=== PATIENT | female | born 1980 | race American Indian/Alaskan Native ===

== ENCOUNTER 2016-12-19 02:27 | Emergency (ER) | payer MEDICAID ==
[2016-12-19 03:03] VITALS: RESP 18
[2016-12-19 03:09] VITALS: BMI 30.6
[2016-12-19] MEDS ORDERED: Morphine 2 mg/ml ISec IM STA (03:27)
--- NOTE | 2016-12-19 03:31 | ED PDOC ---
Arrival/HPI - General Historian: Patient - History of Present Illness Time/Duration: < month Symptom Onset: Gradual Symptom Course: Unchanged Quality: Aching <Graeme Junior - Last Filed: 12/19/16 04:50> <Jose Lehman - Last Filed: 12/19/16 05:42> - General Chief Complaint: Lower Extremity Problem/Injury Time Seen by Provider: 12/19/16 03:14 - History of Present Illness Narrative History of Present Illness (Text): 12/19/16 03:31 36 y/o female with no PMH presents with right dorsal foot pain. Patient states pain started about 3 weeks ago. Patient thinks she may have dropped something on the foot at that time but cannot remember. Pain has been constant since that time however it has worsened over the past 2 days to the point were the patient cannot sleep due to the pain. She was seen by her PCP and prescribed Tramadol which has not provided relief. Patient is able to ambulate however with pain. She denies calf pain or swelling, recent travel, history of blood clots, or smoking history. Patient has a copper IUD. (Graeme Junior) Past Medical History - Provider Review Nursing Documentation Reviewed: Yes - Infectious Disease Hx of Infectious Diseases: None - Tetanus Immunization Tetanus Immunization: Unknown - Past Medical History Past Medical History: No Previous - Pulmonary Hx Asthma: Yes - Musculoskeletal/Rheumatological Hx Musculoskeletal Disorders: No - Gastrointestinal Hx Gastrointestinal Disorders: No - Genitourinary/Gynecological Hx Genitourinary Disorders: No - Psychiatric Hx Psychophysiologic Disorder: No Hx Depression: No Hx Emotional Abuse: No Hx Physical Abuse: No Hx Substance Use: No - Past Surgical History Past Surgical History: No Previous - Surgical History Hx Section: Yes - Anesthesia Hx Anesthesia: No Hx Anesthesia Reactions: No Hx Malignant Hyperthermia: No - Suicidal Assessment Feels Threatened In Home Enviroment: No <Graeme Junior - Last Filed: 12/19/16 04:50> Family/Social History - Physician Review Nursing Documentation Reviewed: Yes Family/Social History: Unknown Family HX Smoking Status: Never Smoked Hx Alcohol Use: No Hx Substance Use: No Hx Substance Use Treatment: No <Graeme Junior - Last Filed: 12/19/16 04:50> Allergies/Home Meds <Graeme Junior - Last Filed: 12/19/16 04:50> <Jose Lehman - Last Filed: 12/19/16 05:42> Allergies/Adverse Reactions: Allergies No Known Allergies Allergy (Verified 02/21/16 22:44) Home Medications: Home Meds Medication Instructions Recorded Confirmed traMADol [Ultram] 50 mg PO DAILY 12/19/16 12/19/16 Review of Systems - Physician Review All systems were reviewed & negative as marked: Yes - Review of Systems Musculoskeletal: Other (right dorsal foot pain ). absent: Back Pain, Neck Pain , Joint Swelling, Myalgias Skin: absent: Rash, Pruritis, Skin Lesions <Graeme Junior - Last Filed: 12/19/16 04:50> Physical Exam Vital Signs Reviewed: Yes Temperature: Afebrile Blood Pressure: Normal Pulse: Regular Respiratory Rate: Normal Appearance: Positive for: Well-Appearing Pain Distress: Mild Mental Status: Positive for: Alert and Oriented X 3 - Systems Exam Head: Present: Atraumatic, Normocephalic Pupils: Present: PERRL Extroacular Muscles: Present: EOMI Conjunctiva: Present: Normal Mouth: Present: Moist Mucous Membranes Neck: Present: Normal Range of Motion Respiratory/Chest: Present: Clear to Auscultation, Good Air Exchange Cardiovascular: Present: Regular Rate and Rhythm, Normal S1, S2 Abdomen: Present: Normal Bowel Sounds. No: Tenderness Upper Extremity: Present: Normal Inspection, Normal ROM, NORMAL PULSES. No: Cyanosis, Edema Lower Extremity: Present: Normal Inspection, NORMAL PULSES, Neurovascularly Intact, Other (tenderness over dorsum right foot. no swelling or obvious injury. ROM intact at ankle and to toes. ). No: Edema, CALF TENDERNESS, Cyanosis, Deep's Sign Neurological: Present: GCS=15, CN II-XII Intact, Speech Normal, Motor Func Grossly Intact Skin: Present: Warm, Dry Psychiatric: Present: Alert, Oriented x 3, Normal Insight, Normal Concentration <Graeme Junior - Last Filed: 12/19/16 04:50> Vital Signs Temp Pulse Resp BP Pulse Ox 12/19/16 03:02 97.9 F 70 18 126/83 100 Medical Decision Making <Graeme Junior - Last Filed: 12/19/16 04:50> <Jose Lehman - Last Filed: 12/19/16 05:42> ED Course and Treatment: 12/19/16 03:31 36 y/o female with no PMH presents with right dorsal foot pain. Questionable history of injury in the past. Pain is refractory to Tramadol. - xray right foot - Morphine 2mg IM now 12/19/16 04:50 Pain is mildly improved with Morphine. Xray was reviewed. There is no fracture or deformity. Patient is placed in a orthotic boot and given crutches. She is advised to keep weight off the foot until she is seen by Podiatry. Patient will continue with Tramadol for pain. Patient has a referral for Podiatry which was given to her by her PCP. (Graeme Junior) Impression: Pt was seen and evaluated with medical records director. Pt presented for right foot pain for 3 weeks. Pt believes she may have dropped something on her foot but she does not remember. Pt was prescribed Tramadol by her PMD but denies any significant relief. Aware and agree with HPI, clinical findings, plan, and management. Plan: -- XR Right Foot -- Morphine -- Reassess and disposition Progress Notes: (Jose Lehman) - RAD Interpretation Radiology Orders: 12/19/16 03:23 FOOT RIGHT 3 VIEWS ROUTINE [RAD] Stat - Medication Orders Current Medication Orders: Discontinued Medications Morphine Sulfate (Morphine) 2 mg IM STAT STA Stop: 12/19/16 03:28 Last Admin: 12/19/16 03:57 Dose: 2 MG MAR Pain Assessment Document 12/19/16 03:57 AMY (Rec: 12/19/16 03:58 AMY [id number]) Pain Reassessment Is this a pain reassessment? Yes Sleep Is patient sleeping during reassessment? No Presence of Pain Presence of Pain Yes Location Left, Right or Bilateral Right Pain Location Body Site Foot IM Administration Charges Document 12/19/16 03:57 AMY (Rec: 12/19/16 03:58 AMY [id number]) Charges for Administration # of IM Administrations 1 - PA / OCULARIST / Resident Statement / has reviewed & agrees with the documentation as recorded. / has examined the patient and agrees with the treatment plan. <Jose Lehman - Last Filed: 12/19/16 05:42> Disposition/Present on Arrival - Present on Arrival Any Indicators Present on Arrival: No History of DVT/PE: No History of Uncontrolled Diabetes: No Urinary Catheter: No History of Decub. Ulcer: No History Surgical Site Infection Following: None - Disposition Have Diagnosis and Disposition been Completed?: Yes Disposition Time: 04:53 Patient Plan: Discharge <Graeme Junior - Last Filed: 12/19/16 04:50> <Jose Lehman - Last Filed: 12/19/16 05:42> - Disposition Diagnosis: Foot pain, right Patient Problems: Current Active Problems Problem Status Diagnosed Foot pain, right Acute Condition: GOOD Discharge Instructions (ExitCare): Arthralgia (ED) Additional Instructions: Continue taking Tramadol for pain as needed. Please see the Lab Instructor recommended to you by your family doctor. Referrals: Maxwell Thomas [Staff Provider] - Follow up with primary Forms: WORK NOTE
[2016-12-19 05:57] VITALS: BP 130/82; PULSE 72; TEMP 98.1; O2SAT 99
--- NOTE | 2016-12-19 07:10 | RAD ---
PROCEDURE: Right Foot Radiographs. HISTORY: foot pain. hx trauma COMPARISON: None. FINDINGS: BONES: There is dorsal midfoot -forefoot level spurring probably at the medial cuneiform - 1st metatarsal base. No fracture. JOINTS: Normal. SOFT TISSUES: Normal. OTHER FINDINGS: None. IMPRESSION: No fracture or dislocation. Degenerative osteophytosis dorsal medial mid foot-forefoot level
== END 2016-12-19 05:10 | disposition home or self-care (01) ==
LOC: ED 02:27
DX: M79.671 Pain in right foot (principal)
CPT/HCPCS: 73630; 96372; 99285; J2270

== ENCOUNTER 2017-03-21 23:22 | Emergency (ER) | payer MEDICAID ==
[2017-03-22 00:07] VITALS: BMI 32.2
[2017-03-22 00:14] VITALS: RESP 18; TEMP 98.1
--- NOTE | 2017-03-22 00:27 | ED PDOC ---
Arrival/HPI - General Chief Complaint: Weakness/Neurological Deficit Time Seen by Provider: 03/22/17 00:26 Historian: Patient - History of Present Illness Narrative History of Present Illness (Text): 03/22/17 00:26 This 36 yo female presents to this ED c/o b/l wrist, b/l ankle "twitching for 3 weeks. Denies other complains. Time/Duration: < month Context: Home Past Medical History - Provider Review Nursing Documentation Reviewed: Yes - Infectious Disease Hx of Infectious Diseases: None - Tetanus Immunization Tetanus Immunization: Unknown - Past Medical History Past Medical History: No Previous - Pulmonary Hx Asthma: Yes - Neurological Hx Neurological Disorder: No - HEENT Hx HEENT Disorder: No - Renal Hx Renal Disorder: No - Endocrine/Metabolic Hx Endocrine Disorders: No - Hematological/Oncological Hx Blood Disorders: No - Integumentary Hx Dermatological Disorder: No - Musculoskeletal/Rheumatological Hx Musculoskeletal Disorders: No - Gastrointestinal Hx Gastrointestinal Disorders: No - Genitourinary/Gynecological Hx Genitourinary Disorders: No - Psychiatric Hx Psychophysiologic Disorder: No Hx Depression: No Hx Emotional Abuse: No Hx Physical Abuse: No Hx Substance Use: No - Past Surgical History Past Surgical History: No Previous - Surgical History Hx Section: Yes (x1) - Anesthesia Hx Anesthesia: No Hx Anesthesia Reactions: No Hx Malignant Hyperthermia: No - Suicidal Assessment Feels Threatened In Home Enviroment: No Family/Social History - Physician Review Nursing Documentation Reviewed: Yes Family/Social History: No Known Family HX Smoking Status: Light Smoker < 10 Cigarettes Daily Hx Alcohol Use: Yes Frequency of alcohol use: Socially Hx Substance Use: No Hx Substance Use Treatment: No Allergies/Home Meds Allergies/Adverse Reactions: Allergies No Known Allergies Allergy (Verified 03/22/17 00:08) Home Medications: Home Meds Medication Instructions Recorded Confirmed No Known Home Med 03/22/17 03/22/17 Review of Systems - Review of Systems Constitutional: Normal. absent: Fatigue, Weight Change, Fevers Eyes: Normal ENT: Normal Respiratory: Normal. absent: SOB, Cough Cardiovascular: Normal. absent: Chest Pain, Palpitations Gastrointestinal: Normal Genitourinary Female: Normal Musculoskeletal: Normal Skin: Normal. absent: Rash, Pruritis, Skin Lesions Neurological: Other (skin twitching). absent: Headache, Dizziness, Focal Weakness, Gait Changes Endocrine: Normal Hemo/Lymphatic: Normal Psychiatric: Normal Physical Exam Vital Signs Temp Pulse Resp BP Pulse Ox 03/22/17 01:30 78 18 132/76 98 03/22/17 00:09 98.1 F 80 18 138/80 100 Temperature: Afebrile Blood Pressure: Normal Pulse: Regular Respiratory Rate: Normal Appearance: Positive for: Well-Appearing, Non-Toxic, Comfortable Pain Distress: None Mental Status: Positive for: Alert and Oriented X 3 - Systems Exam Head: Present: Atraumatic, Normocephalic Pupils: Present: PERRL Extroacular Muscles: Present: EOMI Conjunctiva: Present: Normal Mouth: Present: Moist Mucous Membranes Neck: Present: Normal Range of Motion Respiratory/Chest: Present: Clear to Auscultation, Good Air Exchange. No: Respiratory Distress, Accessory Muscle Use Cardiovascular: Present: Regular Rate and Rhythm, Normal S1, S2. No: Murmurs Abdomen: Present: Normal Bowel Sounds. No: Tenderness, Distention, Peritoneal Signs Back: Present: Normal Inspection. No: CVA Tenderness Upper Extremity: Present: Normal Inspection, Normal ROM, NORMAL PULSES, Neurovascularly Intact, Capillary Refill < 2s. No: Cyanosis, Edema Lower Extremity: Present: Normal Inspection, NORMAL PULSES, Normal ROM, Neurovascularly Intact, Capillary Refill < 2 s. No: Edema Neurological: Present: GCS=15, CN II-XII Intact, Speech Normal, Motor Func Grossly Intact, Normal Sensory Function, Gait Normal Skin: Present: Warm, Dry, Normal Color. No: Rashes Psychiatric: Present: Alert, Oriented x 3, Normal Insight, Normal Concentration Medical Decision Making ED Course and Treatment: 03/22/17 01:30 Re-evaluation. Patient feels better. Discussed results and plan with patient who expresses understanding. All questions answered and there is agreement with the plan to discharge home with instructions. Patient stable for discharge. Return if symptoms persist or worsen. Re-evaluation Time: 01:31 Reassessment Condition: Re-examined, Improved - Lab Interpretations Lab Results: 03/22/17 00:45 03/22/17 00:45 Lab Results 03/22/17 00:45: Sodium 136, Potassium 3.9, Chloride 100, Carbon Dioxide 29, Anion Gap 11, BUN 9, Creatinine 0.7, Est GFR ( Amer) > 60, Est GFR (Non- Af Amer) > 60, Random Glucose 96, Calcium 8.9, Total Bilirubin 0.4, AST 31, ALT 35, Alkaline Phosphatase 46, Total Protein 7.4, Albumin 4.1, Globulin 3.3, Albumin/Globulin Ratio 1.2 03/22/17 00:45: WBC 9.3, RBC 4.82, Hgb 12.9, Hct 37.6, MCV 78.0 L, MCH 26.8, MCHC 34.3, RDW 13.8, Plt Count 232, MPV 10.2, Gran % 53.0, Lymph % (Auto) 37.4 H , [place] % (Auto) 7.0 H, Eos % (Auto) 2.4, Baso % (Auto) 0.2, Gran # 4.93, Lymph # 3.5 H, [place] # 0.7 H, Eos # 0.2, Baso # 0.02 03/22/17 00:40: Urine Color Yellow, Urine Appearance Clear, Urine pH 6.0, Ur Specific [place] 1.020, Urine Protein Negative, Urine Glucose (UA) Negative, Urine Ketones Negative, Urine Blood Negative, Urine Nitrate Negative, Urine Bilirubin Negative, Urine Urobilinogen 0.2, Ur Leukocyte Esterase Negative, Urine HCG, Qual Negative I have reviewed the lab results: Yes Interpretation: No clinic. lab abnormalty Disposition/Present on Arrival - Present on Arrival Any Indicators Present on Arrival: No History of DVT/PE: No History of Uncontrolled Diabetes: No Urinary Catheter: No History of Decub. Ulcer: No History Surgical Site Infection Following: None - Disposition Have Diagnosis and Disposition been Completed?: Yes Diagnosis: Muscle twitching Disposition: HOME/ ROUTINE Disposition Time: 01:31 Patient Plan: Discharge Condition: GOOD Discharge Instructions (ExitCare): Paresthesia (ED) Additional Instructions: Call private doctor for follow up visit in 1-2 days. Your doctor may order other blood test which are not done in Emergency. Return to emergency if symptoms persist. Avoid caffeine drinks. Rest and sleep well. Referrals: [employer] [Outside] - Follow up with primary [facility] [Outside] - Follow up with primary
[2017-03-22 00:53] LABS: URINE BILIRUBIN NEGATIVE (NEGATIVE); URINE BLOOD NEGATIVE (NEGATIVE); URINE GLUCOSE (UA) NEGATIVE (NEGATIVE); URINE LEUKOCYTE ESTERASE NEGATIVE Leu/uL (NEGATIVE); URINE NITRATE NEGATIVE (NEGATIVE); URINE PROTEIN NEGATIVE mg/dL (<30 mg/dL); URINE UROBILINOGEN 0.2 E.U./dL (<1 E.U./dL)
[2017-03-22 00:53] LABS: BASO # 0.02 K/mm3 (0.0-2.0); BASO % 0.2 % (0.0-3.0); EOS # 0.2 (0.0-0.7); EOS % 2.4 % (1.5-5.0); GRAN # 4.93 (1.4-6.5); HEMOGLOBIN 12.9 gm/dL (12.0-16.0); LYMPH # 3.5 (1.2-3.4); LYMPH % 37.4 % (22.0-35.0); MEAN CORPUSCULAR HEMOGLOBIN 26.8 pg (25.0-35.0); MEAN CORPUSCULAR HGB CONC 34.3 g/dl (31.0-37.0); MEAN PLATELET VOLUME 10.2 fl (7.0-11.0); MONO # 0.7 (0.1-0.6); PLATELET COUNT 232 10^3/uL (120.0-450.0); RBC 4.82 10^6/uL (3.5-6.1); RED CELL DISTRIBUTION WIDTH 13.8 % (11.5-14.5); WHITE BLOOD COUNT 9.3 10^3/ul (4.5-11.0)
[2017-03-22 00:59] LABS: URINE APPEARANCE CLEAR (CLEAR); URINE COLOR YELLOW (YELLOW)
[2017-03-22 01:03] LABS: HCG,QUALITATIVE URINE NEGATIVE (NEGATIVE)
[2017-03-22 01:03] LABS: ALB/GLOB RATIO 1.2 (1.1-1.8); ALBUMIN 4.1 g/dL (3.0-4.8); ALT/SGPT 35 U/L (7-56); AST/SGOT 31 U/L (15-39); BLOOD UREA NITROGEN 9 mg/dL (7-21); CALCIUM 8.9 mg/dL (8.4-10.5); GFR AFRICAN-AMERICAN > 60; GFR NON-AFRICAN AMERICAN > 60
[2017-03-22 01:41] VITALS: BP 132/76; PULSE 78; O2SAT 98
== END 2017-03-22 01:49 | disposition home or self-care (01) ==
LOC: ED 23:22
DX: R25.3 Fasciculation (principal)

== ENCOUNTER 2018-08-29 22:19 | Emergency (ER) | payer MEDICAID ==
[2018-08-29 22:19] VITALS: BMI 32.2
[2018-08-30] MEDS ORDERED: Iohexol 350 MG/100 ML VIAL ONE (22:00)
== END 2018-08-29 23:49 | disposition left against medical advice (07) ==
LOC: ED 22:19
DX: Z02.89 Encounter for other administrative examinations (principal); R52 Pain, unspecified

== ENCOUNTER 2018-08-30 20:15 | Emergency (ER) | payer MEDICAID ==
[2018-08-30 20:15] VITALS: BMI 32.2
--- NOTE | 2018-08-30 20:31 | ED PDOC ---
Arrival/HPI <Jose Lehman - Last Filed: 08/30/18 20:57> - General Historian: Patient - History of Present Illness Narrative History of Present Illness (Text): 08/30/18 20:28 38 y/o female, pmh including chronic lower back pain, nkda, c/o lower back pain x 2 days with no fall or trauma. Aching pain, aggravated by walking, radiating to the LLE, no numbness or tingling, no urinary or bowel incontinence, no rash, no dizziness, no change in vision, no palpitation, no other medical or psychological complaints. <Quintin Zarate - Last Filed: 08/31/18 00:22> - General Chief Complaint: Back Pain Past Medical History - Provider Review Nursing Documentation Reviewed: Yes - Infectious Disease Hx of Infectious Diseases: None - Tetanus Immunization Tetanus Immunization: Unknown - Past Medical History Past Medical History: No Previous - Pulmonary Hx Asthma: Yes - Neurological Hx Neurological Disorder: No - HEENT Hx HEENT Disorder: No - Renal Hx Renal Disorder: No - Endocrine/Metabolic Hx Endocrine Disorders: No - Hematological/Oncological Hx Blood Disorders: No - Integumentary Hx Dermatological Disorder: No - Musculoskeletal/Rheumatological Hx Musculoskeletal Disorders: Yes Hx Back Pain: Yes (sciatica) - Gastrointestinal Hx Gastrointestinal Disorders: No - Genitourinary/Gynecological Hx Genitourinary Disorders: No - Psychiatric Hx Psychophysiologic Disorder: No Hx Depression: No Hx Emotional Abuse: No Hx Physical Abuse: No Hx Substance Use: No - Past Surgical History Past Surgical History: No Previous - Surgical History Hx Section: Yes (x1) - Anesthesia Hx Anesthesia: No Hx Anesthesia Reactions: No Hx Malignant Hyperthermia: No - Suicidal Assessment Feels Threatened In Home Enviroment: No <Quintin Zarate - Last Filed: 08/31/18 00:22> Family/Social History - Physician Review Nursing Documentation Reviewed: Yes Family/Social History: Unknown Family HX Smoking Status: Light Smoker < 10 Cigarettes Daily Hx Alcohol Use: Yes Hx Substance Use: No Hx Substance Use Treatment: No <Quintin Zarate - Last Filed: 08/31/18 00:22> Allergies/Home Meds <Jose Lehman - Last Filed: 08/30/18 20:57> <Quintin Zarate - Last Filed: 08/31/18 00:22> Allergies/Adverse Reactions: Allergies No Known Allergies Allergy (Verified 03/22/17 00:08) Review of Systems - Review of Systems Constitutional: absent: Fatigue, Fevers Eyes: absent: Vision Changes ENT: absent: Hearing Changes Respiratory: absent: SOB, Cough Cardiovascular: absent: Chest Pain Gastrointestinal: absent: Abdominal Pain, Diarrhea, Nausea, Vomiting Musculoskeletal: Back Pain, Myalgias. absent: Arthralgias Skin: absent: Rash, Pruritis Neurological: absent: Headache, Dizziness Psychiatric: absent: Anxiety, Depression, Suicidal Ideation <Quintin Zarate Q - Last Filed: 08/31/18 00:22> Physical Exam Pain Distress: Severe - Systems Exam Head: Present: Atraumatic, Normocephalic Pupils: Present: PERRL Extroacular Muscles: Present: EOMI Conjunctiva: Present: Normal Mouth: Present: Moist Mucous Membranes Neck: Present: Normal Range of Motion Respiratory/Chest: Present: Clear to Auscultation, Good Air Exchange. No: Respiratory Distress, Accessory Muscle Use Cardiovascular: Present: Regular Rate and Rhythm, Normal S1, S2. No: Murmurs Abdomen: No: Tenderness, Distention, Peritoneal Signs Back: Present: Normal Inspection, Paraspinal Tenderness, Other (LS spine: +ttp on the bilateral paraspinal region with no rash, unable to perform SLR test, pain with walking and standing, no numbness or tingling. ). No: CVA Tenderness, Midline Tenderness, Decubitus Ulcer Upper Extremity: Present: Normal Inspection. No: Cyanosis, Edema Lower Extremity: Present: Normal Inspection. No: Edema Neurological: Present: GCS=15, CN II-XII Intact, Speech Normal, Motor Func Grossly Intact, Gait Normal, Memory Normal Skin: Present: Warm, Dry, Normal Color. No: Rashes Psychiatric: Present: Alert, Oriented x 3, Normal Insight, Normal Concentration <Quintin Zarate Q - Last Filed: 08/31/18 00:22> Medical Decision Making - RAD Interpretation Radiology Orders: 08/30/18 20:31 LUMBAR SPINE W/CONTRAST [CT] Stat - Medication Orders Current Medication Orders: Sodium Chloride (Sodium Chloride 0.9%) 1,000 mls @ 999 mls/hr IV .Q1H1M STA Stop: 08/30/18 21:32 Discontinued Medications Diazepam (Valium) 10 mg PO ONCE ONE; Protocol Stop: 08/30/18 20:32 Ketorolac Tromethamine (Toradol) 30 mg IVP STAT STA Stop: 08/30/18 20:32 <Jose Lehman - Last Filed: 08/30/18 20:57> ED Course and Treatment: 08/30/18 20:30 -Labs -CT -IV toradol/valium -Observe and reassess 08/31/18 00:19 -Urine hcg is negative -Labs are non-significant -Dimer is negative -CT LS spine show Unremarkable CT examination of the lumbar spine. -Pt. feels well, discussed about result and request to be discharged home with pain medication. -Lidoderm ordered for her. -Discharge home with lidoderm, naproxen, percocet for severe pain, stay hydrated, follow up with your own pmd and orthopedic within 2 days, return to the ER for any new or worsening signs or symptoms. - RAD Interpretation Radiology Orders: CT of the lumbar spine with contrast Clinical history: Pain. Technique: Multiple axial CT images were obtained through the lumbar spine after administration of contrast. Coronal and sagittal 3-D reconstructed images were also obtained. DLP 1105.28 Findings: The lumbar vertebral bodies are in satisfactory positioning and alignment. No fractures or dislocations are demonstrated. Intervertebral disc spaces are well- maintained. There is no evidence of facet subluxation. The neural foramen appear grossly patent. The spinal canal demonstrates normal caliber and contour without evidence of spinal stenosis. The surrounding soft tissues are within normal limits. The aorta demonstrates normal caliber and contour. There are no abnormal enhancing mass. Impression: Unremarkable CT examination of the lumbar spine. Electronically signed on Aug 31, 2018 12:02:24 AM EST by: Malcolm Yusuf M.D., Certified by [facility] Settlement Clerk: Radiologist <Quintin Zarate - Last Filed: 08/31/18 00:22> - PA / RAILROAD YARD WORKER / Resident Statement MACK has reviewed & agrees with the documentation as recorded. <Jose Lehman - Last Filed: 08/30/18 20:57> - PA / RAILROAD YARD WORKER / Resident Statement MACK has reviewed & agrees with the documentation as recorded. <Quintin Zarate - Last Filed: 08/31/18 00:22> Disposition/Present on Arrival <Jose Lehman - Last Filed: 08/30/18 20:57> - Present on Arrival Any Indicators Present on Arrival: No History of DVT/PE: No History of Uncontrolled Diabetes: No Urinary Catheter: No History of Decub. Ulcer: No History Surgical Site Infection Following: None - Disposition Have Diagnosis and Disposition been Completed?: Yes Disposition Time: 00:20 Patient Plan: Discharge <Quintin Zarate - Last Filed: 08/31/18 00:22> - Disposition Diagnosis: Lower back pain, Sciatica Disposition: HOME/ ROUTINE Condition: IMPROVED Additional Instructions: Discharge home with lidoderm, naproxen, percocet for severe pain, stay hydrated, follow up with your own pmd and orthopedic within 2 days, return to the ER for any new or worsening signs or symptoms. Prescriptions: Lidocaine 5% [Lidoderm] 1 patch TP DAILY PRN #14 patch PRN Reason: Other Naproxen 500 mg PO BID PRN #20 tablet PRN Reason: Other oxyCODONE/Acetaminophen [Percocet 5/325 mg Tab] 1 tab PO TID PRN #10 tab PRN Reason: Other Referrals: PCP,NO [Primary Care Provider] - Follow up with primary Erik Mejía III, MD [Medical Doctor] - Follow up with primary [facility] [Outside] - Follow up with primary Forms: [employer] (Urdu), WORK NOTE
[2018-08-30] MEDS ORDERED: Sodium Chloride 0.9% 1,000 ML IV STA (20:32)
[2018-08-30 21:11] LABS: BASO # 0.02 K/mm3 (0.0-2.0); BASO % 0.2 % (0.0-3.0); EOS # 0.2 (0.0-0.7); EOS % 2.1 % (1.5-5.0); GRAN # 5.33 (1.4-6.5); HEMOGLOBIN 12.9 g/dL (12.0-16.0); LYMPH # 2.9 (1.2-3.4); LYMPH % 32.3 % (22.0-35.0); MEAN CELL VOLUME 78.8 fl (80.0-105.0); MEAN CORPUSCULAR HEMOGLOBIN 26.8 pg (25.0-35.0); MEAN CORPUSCULAR HGB CONC 33.9 g/dl (31.0-37.0); MEAN PLATELET VOLUME 10.1 fl (7.0-11.0); MONO # 0.5 (0.1-0.6); MONO % 5.4 % (1.0-6.0); RBC 4.82 10^6/uL (3.5-6.1); RED CELL DISTRIBUTION WIDTH 14.2 % (11.5-14.5); WHITE BLOOD COUNT 8.9 10^3/uL (4.5-11.0)
[2018-08-30 21:32] LABS: ALB/GLOB RATIO 1.3 (1.1-1.8); ALBUMIN 4.4 g/dL (3.0-4.8); ALT/SGPT 21 U/L (7-56); AST/SGOT 30 U/L (14-36); BLOOD UREA NITROGEN 11 mg/dL (7-21); CALCIUM 9.1 mg/dL (8.4-10.5); GFR NON-AFRICAN AMERICAN > 60
[2018-08-30 21:59] VITALS: TEMP 97.9
[2018-08-31] MEDS ORDERED: Lidocaine 5% Patch TD STA (00:18)
[2018-08-31 02:44] VITALS: BP 118/70; PULSE 68; RESP 16; O2SAT 99
--- NOTE | 2018-08-31 12:26 | CT ---
Date of service: 08/30/2018 CT lumbar spine without IV contrast Indication: chronic lower back, worsened x 2 days. Comparison: None available Technique: Noncontrast axial images of the lumbar spine were provided. Sagittal and coronal reformatted images were generated and reviewed. This CT exam was performed using 1 or more of the following dose reduction techniques: Automated exposure control, adjustment of the MAA and/or kV according to patient size, and/or use of iterative reconstruction technique. Total exam DLP: 1105.28 MGy-cm Findings: Vertebral body heights appear within normal limits. Alignment appears satisfactory. No acute fracture or subluxation identified. Paraspinal soft tissues appear unremarkable. Limited visualization of the intra-abdominal and intrapelvic contents appear unremarkable. Impression: No acute fracture or subluxation identified. Preliminary impression was provided by [employer].
== END 2018-08-31 00:45 | disposition home or self-care (01) ==
LOC: ED 20:15
DX: M54.40 Lumbago with sciatica, unspecified side (principal); F17.210 Nicotine dependence, cigarettes, uncomplicated
CPT/HCPCS: 72132; 80053; 82550; 83735; 85025; 85378; 96361; 96374; 99284; J1885; J7030